=== PATIENT | male | born 1985 | race Caucasian/White ===

== ENCOUNTER 2017-10-14 13:46 | Emergency (ER) | payer OTHER ==
[~2017-10-14] VITALS: Ht 182.9 cm; Wt 74.9 kg
[~2017-10-14 13:46] MED LIST: BENADRYL50 MG PO; BENTYL20 MG PO; CLEOCIN300 MG PO; CLINDAMYCIN HC300 MG PO; IBUPROFEN600 MG PO; LYRICA50 MG PO; NAPROSYN500 MG PO; NORCO 5/3251 TABLET PO; TRAMADOL HCL50 MG PO; TYLENOL REGULA325 MG PO; ULTRAM50 MG PO
[2017-10-14] MEDS ORDERED: SKELAXIN800 MG PO (16:22)
[2017-10-14] MEDS ORDERED: TYLENOL WITH C1 EACH PO (16:22)
[2017-10-14 16:53] VITALS: BP 126/86
== END 2017-10-14 16:54 | disposition home or self-care (01) ==
LOC: EME 13:46
DX: D17.1 Benign lipomatous neoplasm of skin and subcutaneous tissue of trunk (principal); K08.89 Other specified disorders of teeth and supporting structures; K02.9 Dental caries, unspecified; Z87.891 Personal history of nicotine dependence